=== PATIENT | male | born 1950 | race Caucasian/White ===

== ENCOUNTER → 2021-04-12 | Outpatient (CLI) | payer MEDICARE, BC ==
--- NOTE | 2021-04-12 13:06 | RAD ---
Frontal view of the chest and 4 additional views, left RIBS 04/12/2021 left rib pain following fall, yesterday COMPARISON STUDY: None FINDINGS: There is no pneumothorax. No focal infiltrate is seen. No pleural effusion is seen. Heart s ize is normal. Prior median sternotomy noted. No displaced rib fractures are identified. No other acu te osseous abnormalities are seen. IMPRESSION: No radiographic evidence of rib fracture or other acute cardiopulmonary abnormality Electronically signed by: Braulio Garcia MD (04/12/2021 1:04 PM) [id number]
== END ==
LOC: RAD 12:29
PROVIDERS: ATTEND Nurse Practitioner Family
DX: R07.81 Pleurodynia (principal); W19.XXXA Unspecified fall, initial encounter
CPT/HCPCS: 71101